=== PATIENT | female | born 1975 | race Two or more races ===

== ENCOUNTER 2024-10-09 06:42 | Day surgery (SDC) | payer BC ==
[~2024-10-09] VITALS: Ht 152.4 cm; Wt 70.3 kg
[~2024-10-09 06:42] MED LIST: FOLI-119 PO; HYDR1TAB97 PO; METH2.5T PO; TRAM50TA2 PO
[2024-10-09] MEDS ORDERED: cefOXitin 2GM/100ML 100 ML IV ONE (07:30)
[2024-10-09] MEDS ORDERED: HEPARIN SODIUM (PORCINE) 5000 UNITS/ML 1ML VIAL ONE (07:46)
[2024-10-09] MEDS ORDERED: BUPIVACAINE 0.5% P/F INJ 10 ML VIAL ONE (08:42)
[2024-10-09] MEDS ORDERED: LIDOCAINE 1% HCL (LOCAL ANESTH.) INJ 20ML MDV ONE ×2 (08:42→08:54)
[2024-10-09] MEDS ORDERED: BUPIVACAINE HCL 50 ML ONE (08:54)
[2024-10-09] MEDS: HEPARIN SODIUM (PORCINE) 5000 UNITS/ML 1ML VIAL SC ONE (09:00)
[2024-10-09] MEDS ORDERED: SUCCINYLCHOLINE CHLORIDE 20 MG/ML 10ML VIAL IV ONE (09:09)
[2024-10-09] MEDS ORDERED: fentaNYL CITRATE 100 MCG/2 ML VL ONE (09:10)
[2024-10-09] MEDS ORDERED: DexAMETHasone SOD PHOS 10MG/1ML VIAL INJ ONE (10:16)
[2024-10-09] MEDS ORDERED: ONDANSETRON HCL 4 MG/2 ML VIAL ONE (10:16)
[2024-10-09] MEDS ORDERED: MEPERIDINE HCL (25 MG/ML) 1ML VIAL ONE (10:24)
[2024-10-09] MEDS ORDERED: SUGAMMADEX 200mg/2ml Vial (100MG/ML) IV ONE (10:43)
[2024-10-09 10:54] VITALS: TEMP 97.5
[2024-10-09] MEDS ORDERED: ONDANSETRON HCL 4 MG/2 ML VIAL IV ONE (11:00)
[2024-10-09] MEDS ORDERED: ACETAMINOPHEN IV 100 ML IV ONE (11:02)
[2024-10-09] MEDS: MEPERIDINE HCL (25 MG/ML) 1ML VIAL IV PRN (11:08)
--- NOTE | 2024-10-09 11:11 | DVHOP ---
DATE OF SURGERY: 10/09/2024 PREOPERATIVE DIAGNOSIS: Symptomatic cholelithiasis. POSTOPERATIVE DIAGNOSIS: Acute cholecystitis and cholelithiasis. PROCEDURE: Laparoscopic cholecystectomy. SURGEON: Christiano Bernal MD [employer] HEAD: None. ANESTHESIOLOGIST: Dr. Fields. ANESTHESIA: General by means of endotracheal intubation. INTRAOPERATIVE FINDINGS: Acutely inflamed, edematous, hydropic gallbladder. ESTIMATED BLOOD LOSS: Minimal. INTRAVENOUS FLUIDS: Per anesthesia charting. URINE OUTPUT: Not recorded given Reeves catheter was not inserted. DRAINS: None. IMPLANTS: Surgicel SNoW and Endoclips. SPECIMENS: Gallbladder. COMPLICATIONS: None. Procedure well tolerated and transferred to recovery room in stable condition. INDICATIONS FOR PROCEDURE: The patient is a 49-year-old female with symptomatic cholelithiasis that had been electively scheduled for a laparoscopic cholecystectomy. The patient developed acute symptoms last night. She is still experiencing some discomfort. The procedure, risks and benefits were explained in a detailed and extensive fashion. All questions were answered. She understood and agreed to proceed. DESCRIPTION OF PROCEDURE: The patient was taken to the operating room, placed in the dorsal decubitus position on the operating table. Once adequate anesthesia was achieved, the abdomen was widely prepped and draped in the usual sterile fashion. My attention was directed towards the periumbilical region, where local anesthesia consisting of 1% lidocaine and 0.5% Marcaine was infiltrated. The abdominal wall was retracted anteriorly by means of Endoclips and by means of towel clamps and a Veress needle was inserted into the abdominal cavity via the base of the umbilicus. The Veress needle was exchanged with a 5 mm trocar and a 5 mm 30-degree laparoscope was inserted into the abdominal cavity. A thorough survey of the abdominal cavity did not reveal any evidence of injury or bleeding upon entry. My attention was then directed to the right side of the abdomen, where 5 mm trocars x 2 were placed. At the epigastric region, a 12 mm trocar was placed. All trocars were placed with preemptive local anesthesia as well as under direct laparoscopic visualization. The gallbladder was identified. It was retracted superiorly, anteriorly, and laterally adequately, exposing the structures within the triangle of Calot. The cystic duct was identified. It was circumferentially dissected and a critical view was obtained confirming that the structure dissected was the cystic duct. Three Endoclips were placed at the distal aspect of cystic duct paying careful attention not to impinge on the common bile duct, 2 were placed proximally and the cystic duct was divided between clips with EndoShears. The cystic artery was identified, circumferentially dissected. Two Endoclips were placed proximally, 1 was placed distally and the cystic artery was divided between clips with EndoShears. The gallbladder was dissected from the liver bed using the paddle electrocautery device. Upon dissection, the gallbladder wall was friable, unintentionally causing a small cholecystotomy spilling clear fluid within the abdominal cavity. The fluid was immediately evacuated. The gallbladder was then completely dissected from the liver bed, it was placed in an EndoCatch bag and exteriorized via the epigastric trocar site. The 12 mm trocar was replaced. At this time, I dedicated my attention inspecting the gallbladder fossa as well as Endoclips. There was no evidence of active bleeding or bile leak from the Endoclips. However, there was a small amount of oozing from the liver bed, which was controlled with electrocautery as well as Surgicel SNoW. At this time, the epigastric fascial defect was closed with #1 Vicryl in a [id number] fashion using a Mannie-Debra device under direct laparoscopic visualization. The right-sided trocars were removed under laparoscopic visualization as the pneumoperitoneum was allowed to evacuate. There was no evidence of active bleeding from either trocar site. The remaining laparoscopic equipment was removed from the patient. The wounds were washed and dried. The skin was closed with 4-0 Monocryl in a subcuticular fashion and dressings were applied. The patient tolerated well the procedure. There were no complications. She was successfully extubated in the operating room and transferred to recovery room in stable condition. Christiano Bernal MD [email or web address]/BALAJI TID: [id number] RECEIPT: [id number]
[2024-10-09] MEDS: HYDROmorphone HCL 2 MG/ML VL/or syr IV PRN (11:29)
[2024-10-09 12:00] VITALS: BP 107/57
[2024-10-09 16:55] VITALS: PULSE 74; RESP 18; O2SAT 94
[2024-10-09] MEDS: ACETAMINOPHEN IV 1000 MG/100ML (10MG/ML) IV PRN (17:08)
== END 2024-10-09 12:15 | disposition home or self-care (01) ==
LOC: SUR 06:42
DX: K80.12 Calculus of gallbladder with acute and chronic cholecystitis without obstruction (principal); K82.8 Other specified diseases of gallbladder; Z88.2 Allergy status to sulfonamides; Z88.8 Allergy status to other drugs, medicaments and biological substances; Z98.890 Other specified postprocedural states
CPT/HCPCS: 47562; 81025; 86850; 86900; 86901; 88304; J0330; J0694; J1100; J1171; J1644; J2003; J2175; J2405; J3010; J3490; J0131